=== PATIENT | female | born 1950 | race Caucasian/White ===

== ENCOUNTER 2024-10-19 08:35 | Emergency (ER) | payer MEDICARE, OTHER, SELFPAY ==
[2024-10-19 08:50] VITALS: BP 158/83
[2024-10-19 09:11] LABS: % Basophils 0.5 % (0-2); % Eosinophils 0.1 % (0-6); % Immature Granulocytes 0.8 % (0-0.5); % Lymphocytes 15.8 % (20.5-51.1); % Monocytes 3.5 % (1.7-9.3); % Neutrophils 79.3 % (42.2-75.2); Absolute Basophils 0.1 10^3/uL (0-0.2); Absolute Immature Granulocytes 0.1 10^3/uL (0-0.05); Absolute Lymphocytes 1.6 10^3/uL (1.2-3.4); Absolute Monocytes 0.4 10^3/uL (0.1-0.6); Absolute Neutrophils 8.1 10^3/uL (1.4-6.5); Hematocrit 39.2 % (37.0-47.0); Hemoglobin 13.2 g/dL (12.0-16.0); Mean Corp Hgb Conc. 33.7 g/dL (33.0-37.0); Mean Corpuscular Hgb 29.1 pg (27.0-31.0); Mean Corpuscular Volume 86.3 fL (81.0-99.0); Nucleated Red Blood Cells % 0 %; Platelet Count 279 10^3/uL (130-400); Red Blood Cell Count 4.54 10^6/uL (4.20-5.40); Red Cell Dist. Width 13.2 % (11.5-14.5); White Blood Cell Count 10.2 10^3/uL (4.8-10.8)
[2024-10-19 09:30] LABS: ALT (SGPT) 19 U/L (0-35); AST (SGOT) 24 U/L (14-36); Albumin 4.4 g/dl (3.5-5.0); Alkaline Phosphatase 96 U/L (38-126); Blood Urea Nitrogen 14 mg/dl (7-17); Calcium 9.5 mg/dl (8.4-10.2); Carbon Dioxide 26 mmol/L (22-30); Chloride 107 mmol/L (98-107); Glucose 140 mg/dl (70-99); Potassium 4.2 mmol/L (3.5-5.1); Sodium 140 mmol/L (135-145); Total Bilirubin 0.6 mg/dl (0.2-1.3); Total Protein 7.8 g/dl (6.3-8.2); eGFR > 60.00
[2024-10-19 09:36] LABS: Troponin I < 0.012 ng/ml
[2024-10-19 10:27] VITALS: BMI 27.4
[2024-10-19 10:30] VITALS: BP 154/83
[2024-10-19 11:00] VITALS: BP 129/78
[2024-10-19 12:00] VITALS: BP 133/81
[2024-10-19 12:12] LABS: Troponin I < 0.012 ng/ml
[2024-10-19 13:00] VITALS: BP 139/86
--- NOTE | 2024-10-19 13:51 | ED.GENMED ---
History of Present Illness
General
Chief Complaint: Chest Pain
Source: patient and family
Time Seen by Provider: 10/19/24 10:29
History of Present Illness
History of Present Illness:
This is 74-year-old female with a history of hypertension who presents for evaluation of chest pain. She states she has some chest pressure and little bit of pain over toward the left side that resolved after about 45 minutes to 1 hour. She states
it happened this morning around 5 AM after waking up. It did not wake her up. She states she was a little bit short of breath but overall now feels much better. She does report history of anxiety. Patient's daughter is a nurse says that she does
sometimes get anxious. Patient denies palpitations or leg swelling. No pleuritic pain. No fevers.
Past History
Past History
ED Past Medical History: HTN and Hypothyroidism
Social History
Personal:
Living: with family
Phy Exam
Physical Exam
Physical Exam:
CONSTITUTIONAL Patient alert and oriented to person, place and time. Well-appearing. Vital signs reviewed.
HEAD atraumatic, normocephalic.
EYES eyelids normal to inspection, Extraocular muscles intact, Conjunctiva normal, Sclera normal.
NECK normal range of motion, Trachea midline, no jugular venous distention.
RESPIRATORY CHEST No respiratory distress noted, Chest expansion equal, Bilateral breath sounds clear.
CARDIOVASCULAR regular rate and rhythm, Heart sounds normal.
ABDOMEN abdomen nontender, Bowel sounds normal. No distention.
BACK normal inspection, no obvious deformities
UPPER EXTREMITY range of motion normal, Motor strength normal, no cyanosis, no edema.
LOWER EXTREMITY range of motion normal, Motor strength normal, no cyanosis, no edema.
NEURO Speech normal, No focal motor deficits, [place] coma scale 15, Memory normal, Cranial Nerves intact to screening exam.
SKIN skin warm, dry, and normal in color.
Scores
Heart Score for Chest Pain Patients
STEMI patient?: No
History: Slightly or Non-Suspicious
ECG: Normal
Age: >/= 65 years
Risk Factors: 1 or 2 Risk Factors
Troponin: </= Normal Limit
Heart Score for Chest Pain Patients: 3
Heart Score Risk: 2.5% MACE over next 6 weeks
Course
Orders/Labs/Results
Orders:
Orders
10/19/24 08:51
ECG [Electrocardiogram (*1)] Urgent
Reason for Study: Chest Pain
EKG- Treatment ONCE
10/19/24 09:02
Complete Blood Count/With Diff Urgent
Comprehensive Metabolic Panel Urgent
Troponin I Urgent
10/19/24 11:14
CR Chest - 2 Views Urgent
Comment:
Reason For Exam: cp
10/19/24 11:35
Troponin I Urgent
Abnormal Lab Results
10/19/24
09:02
Abs Immat Gran (auto) 0.1 H 10^3/uL
(0-0.05)
Absolute Neuts (auto) 8.1 H 10^3/uL
(1.4-6.5)
Immature Gran % 0.8 H %
(0-0.5)
Neutrophils % 79.3 H %
(42.2-75.2)
Lymphocytes % 15.8 L %
(20.5-51.1)
Glucose 140 H mg/dl
(70-99)
10/19/24 09:02
10/19/24 09:02
Vital Signs
Initial and Last Documented VS:
Initial Vital Signs
Temp Pulse Resp BP Pulse Ox
98.1 F 80 16 158/83 97
10/19/24 08:50 10/19/24 08:50 10/19/24 08:50 10/19/24 08:50 10/19/24 08:50
Last Documented Vital Signs
Temp Pulse Resp BP Pulse Ox
98.1 F 79 19 142/84 96
10/19/24 08:50 10/19/24 14:15 10/19/24 14:15 10/19/24 14:01 10/19/24 14:15
MDM/Problems Addressed
Differential Diagnosis Includes:
Acute coronary syndrome, pneumothorax, pneumonia, pulmonary embolism, anxiety, musculoskeletal etiology
MDM/Problems Addressed:
Chest pain
*Radiology
Radiology exam reviewed: radiology read reviewed
*Pulse Oximetry
Patient hypoxic: no
*EKG
Interpreted by ED Provider?: Yes
Comparison EKG: no changes
Rate: normal
Rhythm: sinus
QRS Pattern: left bundle branch block
Ischemia: non-specific ST changes
*Income Tax Consultant Interpretation
Rate: normal
Interpretation: normal
Rhythm: sinus
*Critical Care Note
Total Time (30-74mins, 75-104mins- exclusive of procedures): Not Applicable
Data Reviewed
Source: patient and family
Further Testing Considered But Not Given:
Considered CTA but no hypoxia
Patient Management
Escalation/DeEscalation of care consider admission/obs:
Troponin x 2 negative. Patient remained stable has no further symptoms. Symptoms started at 5 AM making second troponin sensitive. Will refer for outpatient cardiology follow-up
ED Attending Note
-
Portions of this chart may have been created with voice recognition software.� Occasional wrong word or��sound alike� substitutions may have occurred due to the inherent limitations of voice recognition software.
Discharge Plan
Departure
Patient Disposition: Home (Routine Discharge)
Date of Disposition: 10/19/24
Time of Disposition: 14:11
Patient with high blood pressure during this ER visit?: Yes
Discharge Problem:
Chest pain
Instructions: Chest Pain CBC Follow Up
Prescriptions:
No Action
cholecalciferol (vitamin D3) 1,000 UNITS tablet
1,000 units PO DAILY
turmeric root extract 500 MG capsule
1 dose PO DAILY
levothyroxine 100 MCG tablet
100 mcg PO DAILY AT 0700 Qty: 30 1RF
omega [id number]-fish oil 1 EACH capsule
2 tab PO DAILY
hydrochlorothiazide 25 MG tablet
25 mg PO DAILY
rosuvastatin 10 MG tablet
10 mg PO DAILY
Referrals:
Tracy Garcia CRNP [Family Provider] -
Activity Restrictions/Additional Instructions:
Please take 81 mg of aspirin a day. Please avoid strenuous or exertional activity until cleared by cardiology. Please see cardiology in the next 48 hours for reevaluation. Return immediately for worsening pain, shortness breath, palpitations,
sweating, nausea, weakness of any kind, numbness, tingling or any other concerns.
Cardiology has been notified and a follow up appointment has been requested. Someone will call you on the next business day to schedule a follow up appointment.
Interventions
Interventions:
*Risk Screen - Suicide Last Done: 10/19/24 08:55
*General Assessment Last Done: 10/19/24 10:30
*Neglect/Abuse Screening Last Done: 10/19/24 08:55
*ED- Fall Risk Assessment Last Done: 10/19/24 10:30
*ED COVID-19 Vaccine History Last Done: 10/19/24 10:30
*Nursing Disposition Last Done: 10/19/24 14:32
ED- Cardiac Assessment Last Done: 10/19/24 10:30
Discharge Date and Time
Discharge Date/Time: 10/19/24 14:34
Print Language: BENGALI
[2024-10-19 14:01] VITALS: BP 142/84
== END 2024-10-19 14:34 | disposition home or self-care (01) ==
LOC: EMR 08:35
PROVIDERS: Emergency Medicine; EMERGENCY PHYSICIAN Emergency Medicine; FAMILY PHYSICIAN Nurse Practitioner Adult Health
DX: R07.89 Other chest pain (principal); R06.02 Shortness of breath; I44.7 Left bundle-branch block, unspecified; I10 Essential (primary) hypertension; F41.9 Anxiety disorder, unspecified; E03.9 Hypothyroidism, unspecified
CPT/HCPCS: 99285; 71046; 80053; 84484; 85025; 93005

== ENCOUNTER 2024-10-29 23:49 | Day surgery (SDC) | payer MEDICARE, OTHER, SELFPAY ==
[2024-10-29 16:06] VITALS: BP 150/90
[2024-10-29 16:36] LABS: % Basophils 0.2 % (0-2); % Immature Granulocytes 0.5 % (0-0.5); % Lymphocytes 6.3 % (20.5-51.1); % Monocytes 4.2 % (1.7-9.3); % Neutrophils 88.8 % (42.2-75.2); Absolute Immature Granulocytes 0.1 10^3/uL (0-0.05); Absolute Lymphocytes 1.1 10^3/uL (1.2-3.4); Absolute Monocytes 0.8 10^3/uL (0.1-0.6); Absolute Neutrophils 15.7 10^3/uL (1.4-6.5); Hematocrit 38.4 % (37.0-47.0); Hemoglobin 13.3 g/dL (12.0-16.0); Mean Corp Hgb Conc. 34.6 g/dL (33.0-37.0); Mean Corpuscular Hgb 29.4 pg (27.0-31.0); Mean Corpuscular Volume 84.8 fL (81.0-99.0); Mean Platelet Volume 9.2 fL (7.4-10.4); Nucleated Red Blood Cells % 0 %; Platelet Count 289 10^3/uL (130-400); Red Blood Cell Count 4.53 10^6/uL (4.20-5.40); Red Cell Dist. Width 13.3 % (11.5-14.5); White Blood Cell Count 17.7 10^3/uL (4.8-10.8)
[2024-10-29 16:44] LABS: ALT (SGPT) 21 U/L (0-35); AST (SGOT) 22 U/L (14-36); Albumin 4.7 g/dl (3.5-5.0); Alkaline Phosphatase 90 U/L (38-126); Blood Urea Nitrogen 12 mg/dl (7-17); Calcium 9.3 mg/dl (8.4-10.2); Carbon Dioxide 23 mmol/L (22-30); Chloride 104 mmol/L (98-107); Glucose 134 mg/dl (70-99); Potassium 4.1 mmol/L (3.5-5.1); Sodium 137 mmol/L (135-145); Total Bilirubin 0.9 mg/dl (0.2-1.3); Total Protein 8.2 g/dl (6.3-8.2); eGFR > 60.00
[2024-10-29 16:45] LABS: Lipase 30 U/L (23-300)
[2024-10-29 16:54] LABS: Troponin I < 0.012 ng/ml
--- NOTE | 2024-10-29 19:12 | ED.GENMED ---
History of Present Illness
General
Chief Complaint: Abdominal Symptoms
Source: patient
Exam Limitations: none
Time Seen by Provider: 10/29/24 18:32
History of Present Illness
History of Present Illness:
Patient presents with vague right upper quadrant pain with some radiation of the back. Started mildly last night. Became worse at 4 AM. Continuous throughout the day. Some nausea no vomiting. Bowel movements normal. No urinary symptoms. No
history of similar pain. She was here within a month for chest pain however that was more left upper chest and this feels different.
Past History
Past History
ED Past Medical History: HTN and Hypothyroidism
Social History
Tobacco: Non-smoker
Personal:
Living: with family
Review of Systems
Review of Systems
All Other Systems: Not applicable
Constitutional: Denies fever
Respiratory: Reports no symptoms
Cardiac: Reports no symptoms
Phy Exam
Physical Exam
Physical Exam:
GENERAL: Alert and oriented in no apparent distress
EYE: Orbits normal.
NECK: Supple, no significant adenopathy.
ENT: Pharynx without erythema
CARDIAC: Regular rate and rhythm without any obvious murmurs.
LUNGS: Clear breath sounds,normal
ABDOMEN: Soft, mild reproducible right upper quadrant tenderness. No rebound or guarding no mass or hernia. No CVA tenderness
NEUROLOGICAL: Alert and oriented , grossly non-focal
SKIN: Warm and dry, no rash or lesion, no discoloration, skin intact.
MUSCULOSKELETAL: No edema,no deformity.Good color
PSYCH: Normal and appropriate interaction.
Course
Orders/Labs/Results
Orders:
Orders
10/29/24 16:07
ECG [Electrocardiogram (*1)] Urgent
Reason for Study: Chest Pain
Other Reason for Exam: epigastric pain
10/29/24 16:08
EKG- Treatment ONCE
10/29/24 16:19
Complete Blood Count/With Diff Urgent
Comprehensive Metabolic Panel Urgent
Lipase Urgent
Troponin I Urgent
10/29/24 18:40
IV Insert/Care/Rem.- Treatment PRN
0.9% Sodium Chloride 500 ml [Nss] 500 ml IV BOLUS
Ketorolac [Toradol] 15 mg IV NOW STA
US Abdomen Complete/Upper Urgent
Comment:
Reason For Exam: Right upper quadrant pain
10/29/24 20:46
Piperacillin/Tazo 3.375 Gram [Zosyn] 3.375 gram in 50 ml IV NOW
Abnormal Lab Results
10/29/24
16:19
WBC 17.7 H 10^3/uL
(4.8-10.8)
Abs Immat Gran (auto) 0.1 H 10^3/uL
(0-0.05)
Absolute Neuts (auto) 15.7 H 10^3/uL
(1.4-6.5)
Absolute Lymphs (auto) 1.1 L 10^3/uL
(1.2-3.4)
Absolute Monos (auto) 0.8 H 10^3/uL
(0.1-0.6)
Neutrophils % 88.8 H %
(42.2-75.2)
Lymphocytes % 6.3 L %
(20.5-51.1)
Glucose 134 H mg/dl
(70-99)
10/29/24 16:19
10/29/24 16:19
Vital Signs
Initial and Last Documented VS:
Initial Vital Signs
Temp Pulse Resp BP Pulse Ox
99.2 F 111 16 150/90 95
10/29/24 16:06 10/29/24 16:06 10/29/24 16:06 10/29/24 16:06 10/29/24 16:06
Last Documented Vital Signs
Temp Pulse Resp BP Pulse Ox
99.2 F 100 20 127/80 94
10/29/24 16:06 10/29/24 20:25 10/29/24 20:25 10/29/24 20:25 10/29/24 20:28
MDM/Problems Addressed
Differential Diagnosis Includes:
Symptoms consistent with cholecystitis workup in progress. Highly doubt cardiac. Highly doubt PE. No pleuritic pain no chest pain no shortness of breath. Leukocytosis. Ultrasound pending. If ultrasound was negative would consider CT scan
*Radiology
Radiology exam reviewed: radiology read reviewed (Gallstones. No acute cholecystitis by ultrasound)
*Pulse Oximetry
Patient hypoxic: no
*EKG
Interpreted by ED Provider?: Yes
Interpretation: abnormal
Comparison EKG: changes noted
Heart Rate: 123
Rate: tachycardiac
Rhythm: sinus
[place]: normal axis
Interval: normal interval
QRS Pattern: left bundle branch block
Ischemia: no ischemia
*Critical Care Note
Total Time (30-74mins, 75-104mins- exclusive of procedures): Not Applicable
Data Reviewed
Review of Other/Old Records Reveals: Labs, Records and Testing
Update Note
Update Note:
Patient symptom complex very consistent with acute cholecystitis despite no findings by ultrasound except for gallstones. Nothing else to support other diagnoses. Antibiotics admission. Discussed with surgery
ED Attending Note
-
Portions of this chart may have been created with voice recognition software.� Occasional wrong word or��sound alike� substitutions may have occurred due to the inherent limitations of voice recognition software.
Discharge Plan
Departure
Patient Disposition: Admit
Date of Disposition: 10/29/24
Time of Disposition: 20:47
Presentation/result/management discussed w/ accepting MD/DO: General Surgery
Discharge Problem:
Acute cholecystitis
Prescriptions:
No Action
cholecalciferol (vitamin D3) 1,000 UNITS tablet
1,000 units PO DAILY
levothyroxine 100 MCG tablet
100 mcg PO DAILY AT 0700 Qty: 30 1RF
ascorbic acid (vitamin C) [Vitamin C] 1,000 mg Tablet
1,000 mg PO DAILY
acetaminophen [Tylenol] 325 mg Tablet
650 mg PO Q6HPRN PRN (Reason: mild pain)
diltiazem HCl 180 mg Capsule,Extended Release 24hr
180 mg PO DAILY
zinc sulfate 25 mg zinc (110 mg) Tablet
30 mg PO DAILY
spironolactone 25 mg Tablet
25 mg PO DAILY
selenium 200 mcg Tablet
200 mcg PO DAILY
ezetimibe [Zetia] 10 mg Tablet
10 mg PO DAILY
coQ10 (ubiquinol) 100 mg Capsule
100 mg PO DAILY
Eliquis 5 mg Tablet
5 mg PO BID
Referrals:
Tracy Garcia CRNP [Family Provider] -
Interventions
Interventions:
*Risk Screen - Suicide Last Done: 10/29/24 20:22
*General Assessment Last Done: 10/29/24 20:22
*Neglect/Abuse Screening Last Done: 10/29/24 20:22
*ED- Fall Risk Assessment Last Done: 10/29/24 20:22
*ED COVID-19 Vaccine History Last Done: 10/29/24 20:22
IW-[id number]-Znygdgkudo Assessment Last Done: 10/29/24 20:26
Discharge Date and Time
Print Language: HEBREW
[2024-10-29] MEDS: NSS 500 IV (20:11)
[2024-10-29] MEDS: TORADOL 15 MG IV (20:17)
[2024-10-29 20:22] VITALS: BMI 26.5
[2024-10-29 20:25] VITALS: BP 127/80
[2024-10-29 21:01] VITALS: BP 98/64
[2024-10-29 22:00] VITALS: BP 112/61
[2024-10-29] MEDS: ZOSYN 50 IV (22:32)
--- NOTE | 2024-10-29 22:47 | HPS.HSE ---
Addendum entered and electronically signed by Tj Davis MD 10/30/24 09:12:
I saw and examined the patient independently.
The Stonemason Supervisor's note was reviewed and I agree with the note, assessment and plan except where noted below.
Comment: This is a 74-year-old female with a history of A-fib on Eliquis last dose 10/28/2024 who presents with 2-day history of postprandial right upper quadrant pain found to have gallstones on ultrasound imaging but no other stigmata of
cholecystitis nevertheless she has a significant leukocytosis and her history and exam are consistent with acute cholecystitis.
Will plan for a laparoscopic cholecystectomy in the OR today.
N.p.o., IV fluids, IV antibiotics.
Risks/Benefits/Alternatives, expected postoperative course and possible complications (bleeding, infection, injury to surrounding structures, acute/chronic pain) discussed at length. Patient wishes to proceed with surgery. All questions answered.
Consent obtained.
I spent 65 minutes in total for the care of this patient today including direct patient care and counseling, reviewing labs, imaging, coordination of care, as well as documentation.
Original Note:
Family Physician
-
Family Physician: Tracy Garcia
Chief Complaint
-
Abdominal pain
History of Present Illness
Patient is a 74 year old female with a past medical history significant for Paroxysmal atrial fibrillation (on Eliquis), hypertension, hypercholesterolemia, hypothyroidism presents to the emergency department with a complaint of right upper quadrant
abdominal pain that radiates to her back. Pain started around 4 am this morning, continued throughout the day. Patient admits to some nausea, vomited small amounts of 'bile'. Patient states she did have similar abdominal pain about 2 months ago
that resolved on its own. Denies diarrhea, constipation. Denies any urinary symptoms.
In the emergency department, labs significant for WBC 17.7, Abdominal ultrasound shows Cholelithiasis. No secondary findings to suggest acute cholecystitis. No evidence of biliary ductal dilation.
Patient received NSS 500 mls bolus, Toradol 15 mg IV x 1, Zosyn 3.375 g IV x [address] Pineda discussed case with Dr. Davis, General surgery, who is accepting patient to be admitted to his service for evaluation/treatment. Patient NPO, IV fluids, and IV antibiotics.
Medical History
Past Medical History
Past Medical History: Reports Arrhythmia (Paroxysmal atrial fibrillation (on Eliquis)), HTN, Hypercholesterolemia and Hypothyroidism
Past Surgical History: Reports Gynocological (Surgery for right ovary, 30 years ago)
Social History
Tobacco: Former Smoker (quit 8 years ago)
Alcohol: Occasional (1 glass of wine [id number])
Drug: None
Personal:
Living: With Family
Employment: Retired
Family History
Family History: Not pertinent
Allergies / Home Medications
Allergies reflects when Allergies were last updated in [employer].
Home Medications with original date entered in [employer]
Allergy/Medication List:
Patient Allergies
Allergy/AdvReac Type Severity Reaction Status Date / Time
No Known Allergies Allergy Verified 10/29/24 16:08
Home Medications
�Medication �Instructions �Recorded
cholecalciferol (vitamin D3) 25 1,000 units PO DAILY 05/30/17
mcg (1,000 unit) tablet
levothyroxine 100 mcg tablet 100 mcg PO DAILY AT 0700 ##30 05/31/17
acetaminophen 325 mg tablet 650 mg PO Q6HPRN PRN mild pain 10/29/24
(Tylenol)
apixaban 5 mg tablet (Eliquis) 5 mg PO BID 10/29/24
ascorbic acid (vitamin C) 1,000 mg 1,000 mg PO DAILY 10/29/24
tablet (Vitamin C)
coQ10 (ubiquinol) 100 mg capsule 100 mg PO DAILY 10/29/24
diltiazem HCl 180 mg 180 mg PO DAILY 10/29/24
capsule,extended release 24 hr
ezetimibe 10 mg tablet (Zetia) 10 mg PO DAILY 10/29/24
selenium 200 mcg tablet 200 mcg PO DAILY 10/29/24
spironolactone 25 mg tablet 25 mg PO DAILY 10/29/24
zinc sulfate 25 mg zinc (110 mg) 30 mg PO DAILY 10/29/24
tablet
Review of Systems
-
A 12 point ROS was completed and negative except as noted: Yes
Constitutional: Denies Fever
EENT: Reports No Symptoms
Respiratory: Reports No Symptoms
Cardiac: Reports No Symptoms
Abdomen/GI: Reports Abdominal Pain (right upper quadrant, radiating to back), Nausea and Vomiting
: Reports No Symptoms
Musculoskeletal: Reports No Symptoms
Skin: Reports No Symptoms
Neurological: Reports No Symptoms
Physical Exam
Vital Signs
Vital Signs
Temp Pulse Resp BP Pulse Ox
99.2 F 100 20 98/64 93
10/29/24 16:06 10/29/24 20:25 10/29/24 20:25 10/29/24 21:01 10/29/24 21:45
Physical Exam
General: No Apparent Distress and Comfortable
HEENT: Moist mucous membranes and PERRLA
Respiratory: Clear and Non Labored Respirations
Cardiac: Regular Rhythm
GI: Soft, Non Distended, Normal Bowel Sounds and Tender (right upper quadrant tenderness)
Skin: Warm and Dry
Neuro: AO x 3
Psych: Calm and Intact Judgment/Insight
Laboratory Results
-
10/29/24 16:19
10/29/24 16:19
Laboratory Results
Total Bilirubin 0.9 mg/dl (0.2-1.3) 10/29/24 16:19
AST 22 U/L (14-36) 10/29/24 16:19
ALT 21 U/L (0-35) 10/29/24 16:19
Alkaline Phosphatase 90 U/L (38-126) 10/29/24 16:19
Troponin I < 0.012 ng/ml 10/29/24 16:19
Lipase 30 U/L (23-300) 10/29/24 16:19
Data Reviewed
-
Ultrasound: Report Reviewed by me
Lab Data: Labs Reviewed by me
Impression/Plan
-
IMPRESSION:
Patient is a 74 year old female with a past medical history significant for Paroxysmal atrial fibrillation (on Eliquis), hypertension, hypercholesterolemia, hypothyroidism presents to the emergency department with a complaint of right upper quadrant
abdominal pain that radiates to her back.
PLAN:
Cholecystitis/Gallstones
- Admit to General Surgery, Dr. Davis
- NPO, IV fluids NS @ 75 mls/hr
- IV antibiotics: Zosyn 3.375 mg IV Q6H
- IV pain medication, Morphine. IV antiemetics, Zofran.
Paroxysmal Atrial Fibrillation/Hypertension/ Hypercholesterolemia
- Continue Diltiazem
- Hold Eliquis, possible OR
- Hold Spironolactone and Zetia, resume as per surgery
Hypothyroidism
- Continue Levothyroxine
Code Status: Full code
DVT Prophylaxis: SCD's/Ben stockings
[2024-10-29 23:00] VITALS: BP 111/60
[2024-10-30] VITALS (16 sets, daily range): BP systolic 105–135; BP diastolic 61–72; BMI 27.0
--- NOTE | 2024-10-30 00:05 | PTCARENOTE ---
Pt arrived to unit from ED, ambulated independently. AAOx3, 12/17 pain to RUQ - PRN IV morphine provided. Pt oriented to room, call huffman within reach.
[2024-10-30] MEDS: NSS 1000 IV ×2 (00:10→12:22)
[2024-10-30] MEDS: MORPHINE SULFATE 4 MG IV ×2 (00:30→05:48)
[2024-10-30] MEDS: SYNTHROID PO (05:49)
[2024-10-30] MEDS: ZOFRAN 4 MG IV ×2 (05:51→11:41)
[2024-10-30 07:55] LABS: Hematocrit 33.3 % (37.0-47.0); Hemoglobin 11.1 g/dL (12.0-16.0); Mean Corp Hgb Conc. 33.3 g/dL (33.0-37.0); Mean Corpuscular Hgb 29.1 pg (27.0-31.0); Mean Corpuscular Volume 87.2 fL (81.0-99.0); Mean Platelet Volume 9.8 fL (7.4-10.4); Platelet Count 239 10^3/uL (130-400); Red Blood Cell Count 3.82 10^6/uL (4.20-5.40); Red Cell Dist. Width 13.6 % (11.5-14.5); White Blood Cell Count 16.1 10^3/uL (4.8-10.8)
[2024-10-30] MEDS: CARDIZEM CD 180 MG PO (08:25)
[2024-10-30] MEDS: SYNTHROID 100 MCG PO (08:29)
[2024-10-30] MEDS: ZOSYN 50 IV ×3 (08:29→21:21)
[2024-10-30 08:49] LABS: Blood Urea Nitrogen 15 mg/dl (7-17); Calcium 8.5 mg/dl (8.4-10.2); Carbon Dioxide 21 mmol/L (22-30); Chloride 106 mmol/L (98-107); Estimated Creatinine Clearance 59 ml/min; Glucose 107 mg/dl (70-99); Potassium 4.1 mmol/L (3.5-5.1); Sodium 135 mmol/L (135-145); eGFR > 60.00
--- NOTE | 2024-10-30 08:57 | PTCARENOTE ---
PREOP prep completed. pt sent to OR report called to PACU area.
--- NOTE | 2024-10-30 09:08 | W.SUR.PREOP ---
Pre-Operative Surgical Note
-
I have examined this patient prior to the performance of the scheduled procedure.
The patient's condition is unchanged from the time of the current History and
Physical and the patient is able to undergo the scheduled procedure.
--- NOTE | 2024-10-30 10:56 | W.IMMPOSTOP ---
Surgical Immed Post Op Note
-
Primary Surgeon: Tj Davis MD
Assisting Surgeon: None
Pre-op Diagnosis: Acute cholecystitis
Post-op Diagnosis: Biliary colic, perforated appendicitis
Procedure Performed:
1. Laparoscopic cholecystectomy with cholangiogram
2. Laparoscopic appendectomy
3. Drainage of an intra-abdominal abscess
Anesthesia Type: General
Specimen / Cultures:
1. Gallbladder and contents
2. Appendix
3. Periappendiceal abscess for Gram stain and culture.
Estimated Blood Loss: 11 cc
Complications: None
Operative Findings: Distended and mildly inflamed gallbladder. Critical view of safety obtained prior to a cholangiogram which demonstrated no filling defects but significant amount of sludge and stones in the cystic duct which were removed prior
to ligation with a clip followed by a 0 PDS Endoloop. Given that her gallbladder findings were not completely concurrent with her leukocytosis and the degree of her symptoms we did explore her right lower quadrant and identified a perforated
appendix and a walled off abscess. Cultures were taken. The base of the appendix appeared normal and was ligated using a 45 moser load on a Endo REBECCA stapler. Using the base of the appendix as a handle this was carefully dissected off of the
surrounding tissues which were markedly inflamed. Surgiflo was used to assist with hemostasis. The abscess fluid was suctioned up and gently irrigated. A 19 Wallisian round Jona drain was placed through the left lower quadrant port and draped off
the right colic gutter. This was secured at the skin with a 2-0 nylon suture. The 12 mm epigastric port was closed with a 0 PDS [id number]. After evacuation of pneumoperitoneum all incisions were closed with 4-0 Monocryl followed by
Dermabond.
POST OP PLAN:
Imaging: None
Labs: Routine AM
Diet: Clears
Analgesia: Tylenol 650mg q6 Chrissy, Sasha 5mg q6 PRN, Dilaudid 0.5mg q2h PRN
Neuro/vascular checks: q4h
AC/AP: Hold Therapeutic AC/Eliquis for 48 hours, Ok for DVT PPx
Activity: Ad Nadege
Wound/Incisions/Drains: Routine, MEGHAN to bulb suction
Abx: Antibiotics x 4 days
Dispo: RNF anticipate discharge Saturday pending clinical course with or without the drain.
--- NOTE | 2024-10-30 11:02 | OR.RPT ---
Operative Report
Operative Report
Patient Name: Thu Khan
: 1950
Date of Operation: 10/30/24
Preoperative Diagnosis: Acute cholecystitis
Postoperative Diagnosis: Biliary colic, perforated appendicitis
Procedure(s):
1. Laparoscopic cholecystectomy with cholangiogram
2. Laparoscopic appendectomy
3. Drainage of an intra-abdominal abscess
Surgeon(s):
Dr. Tj Davis
Lead Php Developer(s):
Tracy Dietz SUPERVISOR TUMBLERS
LEXX LeonardoA
Anesthesia: General
Estimated Blood Loss: 11 cc
Urine Output: None
Drains/Lines/Implants: 19 Nauruan round Jona drain in the left lower quadrant port of the right colic gutter.
Specimens:
1. Gallbladder and contents
2. Appendix
3. Periappendiceal abscess for Gram stain and culture.
HPI/Surgical Indications:
This is a 74-year-old female who presented with 2 days of right upper quadrant postprandial abdominal pain in the setting of a similar episode roughly a month ago. Ultrasound imaging was notable for significant burden of cholelithiasis without
overt stigmata of cholecystitis, nevertheless the patient was tender to palpation in the right upper quadrant and had a significant leukocytosis concerning for evolving acute cholecystitis. Risks/Benefits/Alternatives were discussed at length, and
the patient agreed to proceed with surgery.
Operative Findings: Distended and mildly inflamed gallbladder. Critical view of safety obtained prior to a cholangiogram which demonstrated no filling defects but significant amount of sludge and stones in the cystic duct which were removed prior
to ligation with a clip followed by a 0 PDS Endoloop. Given that her gallbladder findings were not completely concurrent with her leukocytosis and the degree of her symptoms we did explore her right lower quadrant and identified a perforated
appendix and a walled off abscess. Cultures were taken. The base of the appendix appeared normal and was ligated using a 45 luque load on a Endo REBECCA stapler. Using the base of the appendix as a handle this was carefully dissected off of the
surrounding tissues which were markedly inflamed. Surgiflo was used to assist with hemostasis. The abscess fluid was suctioned up and gently irrigated. A 19 Nauruan round Jona drain was placed through the left lower quadrant port and draped off
the right colic gutter. This was secured at the skin with a 2-0 nylon suture. The 12 mm epigastric port was closed with a 0 PDS [id number]. After evacuation of pneumoperitoneum all incisions were closed with 4-0 Monocryl followed by
Dermabond.
Procedure Description:
The patient was brought to the Operating Room and placed in the supine position with one arm tucked. Following uneventful induction of general endotracheal anesthesia, an orogastric tube was placed. The abdomen was prepped and draped in the usual
sterile fashion. A timeout was performed confirming the procedure, consent, and that IV antibiotics were infused and sequential compression devices were confirmed to be on. The abdomen was entered using a left subcostal Veress technique which
required a single pass followed by a 5 mm right upper quadrant Optiview trocar. Pneumoperitoneum to 15 mmHg pressure was obtained without difficulty and we confirmed that no injury had occurred during our entry. The patient was positioned in
reverse Trendelenberg and rotated with the right side up slightly. Two 5 mm trocars were then placed along the right subcostal margin, followed by a 12 mm port in the epigastrium. The gallbladder appeared fairly normal however was mildly thickened
around the cystic triangle and was distended. A locking grasping forceps was placed on the fundus of the gallbladder where it was then retracted cephalad and to the right. Using appropriate grasping instruments, the peritoneum overlying the
triangle of Calot was incised and extended superiorly on both the anterior and posterior gallbladder bagley. The infundibulum was dissected off the cystic plate. The cystic triangle was dissected until a critical view of safety was achieved. The
cystic artery was medialized, dissected and controlled with 2 proximal clips and 1 distal. The cystic duct/gallbladder junction in turn was identified, dissected circumferentially and a clip was placed. A ductotomy was made and a cholangiocatheter
on an Sandoval clamp was inserted into the cystic duct. A C-arm was draped and brought into the field. An intra-operative cholangiogram was performed and was noted to have:
No filling defects in the biliary tree
No significant biliary dilation
Brisk flow of contrast into the duodenum
Normal biliary anatomy
The catheter was then removed and the cystic duct was controlled with a clip followed by a 0 PDS Endoloop. After ensuring both the artery and duct were divided, the gallbladder was freed from the liver using electrocautery. There was some spillage
of bile, but no spillage of stones. The gallbladder bed was inspected and excellent hemostasis was obtained. The gallbladder was extracted through the 12 mm trocar site using an endocatch bag. The abdomen was again irrigated and excellent
hemostasis was assured. Despite being mildly inflamed, her gallbladder did not appear consistent with her leukocytosis so I explored her right lower quadrant. The fold of Treves was identified and traced at the cecum. The base of the cecum was
identified as was the base of the appendix which appeared normal however this tracked retroperitoneally and as we rotated the cecum medially we encountered pus and a large abscess cavity consistent with perforated appendicitis. Cultures were taken
and the abscess fluid was quickly suctioned up. The we initially attempted to perform the dissection through our laparoscopic cholecystectomy ports these were not well-positioned to remove retrocecal appendix so 2 additional 5 mm ports were placed
in the lower mid abdomen as well as the left lower quadrant. A window was created in the mesoappendix. The base of the appendix appeared uninvolved and was ligated/divided using a 45 Luque Endo REBECCA. Using this as a handle a laparoscopic bipolar
energy device was used to divide the meso appendix and the appendix which was heavily socked into the surrounding tissues. Hemostasis was achieved with some pinpoint cautery as well as Surgiflo. The appendix was placed in a specimen retrieval bag.
Hemostasis was confirmed and the ports were removed under visualization. In order to better drain her intra-abdominal abscess a 19 Nauruan round Jona drain was introduced through the left lower quadrant port and passed across the field up the right
colic gutter and secured at the skin with a 2-0 nylon suture. The specimen was passed off the field. The epigastric port was closed with a [id number] 0-PDS and the skin for all ports were closed with interrupted monocryls and covered with
dermabond. The patient was awoken from anesthesia in good condition and transported to the recovery area.
I was the attending physician and performed the procedure with assistance from the SUPERVISOR TUMBLERS as above Tracy was present for the cholecystectomy portion and then make he was present and assisted the appendectomy. I was present for all portions of the case.
Tj Davis MD
[2024-10-30] MEDS: COMPAZINE 5 MG IV (12:14)
--- NOTE | 2024-10-30 14:08 | CM ---
Addendum entered by Shari Gar 10/30/24 14:13:
Watch for VN needs for drain.
Original Note:
CM reviewed chart, patient seen bedside, initial assessment completed. Patient recently returned from OR. Patient resides with her daughter and three grandchildren in a split level home, no steps to enter, seven steps to second floor (bedroom).
Patient is independent with ADLs/IADLS, denies VN or SNF. Patient PCP Tracy Garcia, [facility], confirms prescription coverage ([facility], RXBIN: [id number]). Per UR, patient changed from OBS to PSR. CM will continue to follow for all
discharge planning needs.
Plan; home no needs anticipated
[2024-10-30] MEDS: TYLENOL 650 MG PO (19:58)
[2024-10-31] MEDS: NSS 1000 IV (02:47)
[2024-10-31] MEDS: ZOSYN 50 IV ×2 (03:02→10:30)
[2024-10-31 03:05] VITALS: BP 126/74
[2024-10-31] MEDS: SYNTHROID 100 MCG PO (05:42)
[2024-10-31] MEDS: TYLENOL 650 MG PO (05:43)
[2024-10-31] MEDS: CARDIZEM CD 180 MG PO (07:51)
[2024-10-31 08:20] LABS: Hematocrit 31.6 % (37.0-47.0); Hemoglobin 10.6 g/dL (12.0-16.0); Mean Corp Hgb Conc. 33.5 g/dL (33.0-37.0); Mean Corpuscular Hgb 29.1 pg (27.0-31.0); Mean Corpuscular Volume 86.8 fL (81.0-99.0); Mean Platelet Volume 9.4 fL (7.4-10.4); Platelet Count 233 10^3/uL (130-400); Red Blood Cell Count 3.64 10^6/uL (4.20-5.40); Red Cell Dist. Width 13.4 % (11.5-14.5); White Blood Cell Count 14.7 10^3/uL (4.8-10.8)
[2024-10-31 08:34] LABS: ALT (SGPT) 26 U/L (0-35); AST (SGOT) 30 U/L (14-36); Albumin 3.6 g/dl (3.5-5.0); Alkaline Phosphatase 81 U/L (38-126); Blood Urea Nitrogen 12 mg/dl (7-17); Calcium 8.7 mg/dl (8.4-10.2); Carbon Dioxide 24 mmol/L (22-30); Chloride 109 mmol/L (98-107); Estimated Creatinine Clearance 67 ml/min; Glucose 117 mg/dl (70-99); Potassium 4.1 mmol/L (3.5-5.1); Sodium 139 mmol/L (135-145); Total Bilirubin 0.8 mg/dl (0.2-1.3); Total Protein 6.6 g/dl (6.3-8.2); eGFR > 60.00
[2024-10-31 08:42] VITALS: BP 119/69
--- NOTE | 2024-10-31 11:12 | W.PN.GS2 ---
Today's Communication / Plan
-
c/w abx and drain
Assessment / Plan
-
74 yo female presenting with biliary colic and ruq abdominal pain with equivocal USN, perforated appendicitis noted intraop.
POD #1 lap og, lap appi, drainage of intraabdominal abscess
AFVSS
Leukocytosis present but trending down
H/H stable
+flatus, no n/v, tolerating dietary advancements
MEGHAN with purulent ssf
--Regular diet
--D/C IVF
--c/w antibiotics, will transition to PO upon d/c
--OOB/Ambulate
--C/W MEGHAN drain, will likely remain in place upon dc
--C/W to hold Eliquis until minimum of 48h post op
--SCDs while in bed
Tentative d/c later today vs tomorrow pending patient progress
Subjective Data
-
Date of Service: October 31, 2024
Patient seen and examined at bedside. Denies n/v. passing a good deal of flatus. no bm as of yet. Minimal pain.
Objective Data
-
Intake and Output
10/30/24 10/31/24 11/01/24
06:59 06:59 06:59
Intake Total 880 / 880 800 / 800
Output Total 90 / 90
Balance 880 / 880 710 / 710
Intake:
Oral fluids 480 / 480
IV fluids (Total) 400 / 400 700 / 700
IV piggybacks 100 / 100
Output:
Drain Output (Total) 90 / 90
Cristino-Mendoza 90 / 90
Other:
Number of approximated MODERATE 3
amounts of urine
Vital Signs
Temp Pulse Resp BP Pulse Ox
98.0 F 71 16 119/69 96
10/31/24 08:42 05/24/25 08:42 10/31/24 08:42 10/31/24 08:42 10/31/24 08:42
Lab Results
10/31/24 08:04
10/31/24 08:04
Calcium 8.7 mg/dl (8.4-10.2) 10/31/24 08:04
Total Bilirubin 0.8 mg/dl (0.2-1.3) 10/31/24 08:04
AST 30 U/L (14-36) 10/31/24 08:04
ALT 26 U/L (0-35) 10/31/24 08:04
Alkaline Phosphatase 81 U/L (38-126) 10/31/24 08:04
Total Protein 6.6 g/dl (6.3-8.2) 10/31/24 08:04
Albumin 3.6 g/dl (3.5-5.0) 10/31/24 08:04
Physical Exam
-
NAD
ABD soft, nt, nd
MEGHAN with cloudy ssf
Incisions well approximated with intact glue
--- NOTE | 2024-10-31 13:40 | W.DS.TRANS ---
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
-
Discharge Instructions:
Discharge Diagnosis/Procedures Biliary colic, acute appendicitis. Laparoscopic
cholecystectomy, appendectomy
Diet As tolerated,Regular
Activity No strenuous activity
Driving Restrictions No driving for 24 hours
Bathing Restrictions OK to Shower
Wound Care Empty your drain twice a day. Ok to remove
dressing for showering and then apply a clean
gauze pad over the site. Keep track of your
drainage for your follow up appointment early
next week to have the drain removed.
Instructions: How to care for a closed suction drain
Stand-Alone Forms:
Changes to Home Medications: No
Discharge Medications:
DC Medications w/original date entered in [employer]
cholecalciferol (vitamin D3) 25 mcg (1,000 unit) tablet 1,000 units PO DAILY Supplement 05/30/17
levothyroxine 100 mcg tablet 100 mcg PO DAILY AT 0700 ##30 05/31/17
acetaminophen 325 mg tablet (Tylenol) 650 mg PO Q6HPRN PRN mild pain 10/29/24
apixaban 5 mg tablet (Eliquis) 5 mg PO BID Blood Clot Prevention/Tx 10/29/24
ascorbic acid (vitamin C) 1,000 mg tablet (Vitamin C) 1,000 mg PO DAILY Supplement 10/29/24
coQ10 (ubiquinol) 100 mg capsule 100 mg PO DAILY Supplement 10/29/24
diltiazem HCl 180 mg capsule,extended release 24 hr 180 mg PO DAILY Blood Pressure 10/29/24
ezetimibe 10 mg tablet (Zetia) 10 mg PO DAILY High Cholesterol 10/29/24
selenium 200 mcg tablet 200 mcg PO DAILY Supplement 10/29/24
spironolactone 25 mg tablet 25 mg PO DAILY Fluid Retention/Swelling 10/29/24
zinc sulfate 25 mg zinc (110 mg) tablet 30 mg PO DAILY Supplement 10/29/24
amoxicillin 875 mg-potassium clavulanate 125 mg tablet 1 tab PO Q12 antibiotic #10 tabs 10/31/24
tramadol 50 mg tablet 25 - 50 mg (0.5 - 1 x 50 mg) PO Q6HPRN PRN severe pain/breakthrough pain #5 tabs 10/31/24
Home Medication Changes
Pending Results: No
--- NOTE | 2024-10-31 13:53 | CM ---
Chart reviewed home no needs when stable. [facility] letter given
Plan; Home no needs.
== END 2024-10-31 15:04 | disposition home or self-care (01) ==
LOC: PACU 23:49
PROVIDERS: Emergency Medicine; Nurse Practitioner Family; Registered Nurse; EMERGENCY PHYSICIAN Emergency Medicine; FAMILY PHYSICIAN Nurse Practitioner Adult Health
DX: K35.80 Unspecified acute appendicitis (principal); K38.1 Appendicular concretions; K80.10 Calculus of gallbladder with chronic cholecystitis without obstruction
CPT/HCPCS: 44970; 47563; 88304; 74300; 76000; 76700; 80048; 80053; 83690; 84484; 85025; 85027; 86850; 86900; 86901; 87070; 87075; 87077; 87186; 87205; 93005; 96361; 96365; 96375; 99285; A4300; C1776